=== PATIENT | female | born 1930 | race Asian ===

== ENCOUNTER → 2016-11-08 | Outpatient (CLI) | payer MEDICARE, OTHER | END | disposition home or self-care (01) | LOC: RADPV 12:55 | PROVIDERS: ATTEND Internal Medicine Pulmonary Disease | DX: S23.41XA Sprain of ribs, initial encounter (principal); I70.0 Atherosclerosis of aorta; J84.89 Other specified interstitial pulmonary diseases; W10.8XXA Fall (on) (from) other stairs and steps, initial encounter | CPT/HCPCS: 71020; 71100 ==